=== PATIENT | male | born 1945 | race Caucasian/White ===

== ENCOUNTER 2018-04-07 11:28 | Emergency (ER) | payer MEDICARE ==
[~2018-04-07] VITALS: Ht 177.8 cm; Wt 97.0 kg
[~2018-04-07 11:28] MED LIST: ASPI-515 PO; CEFD300C37 PO; CIPR500T87 PO; DRON10CA PO; ENAL5TAB70 PO; Hydrocodone Bit/Acetaminophen PO; IBUP-1222 PO; LACT1CAP24 PO; LOSA25TA25 PO; METO25TA4 PO; METR500T PO; METR750T PO; OMEP-110 PO; OMEP20TA62 PO; POLY17PO5 PO; PROM25TA10 PO; ROSU10TA PO; TICA90TA PO
[2018-04-07] MEDS ORDERED: ONDANSETRON ODT 4 MG ONE (12:00)
[2018-04-07] MEDS ORDERED: MECLIZINE CHEWABLE 25 MG TAB ONE ×2 (12:27→13:30)
[2018-04-07] MEDS ORDERED: ONDANSETRON ODT 4 MG PO ONE (12:30)
[2018-04-07] MEDS ORDERED: MECLIZINE CHEWABLE 25 MG TAB PO ONE (12:30)
--- NOTE | 2018-04-07 12:30 | NUR ---
THIS IS A 72 YO MALE WHO PRESENTS TO THE ER C/O SUDDEN ONSET OF BLURRED VISION "I SAW WORMS ACROSS THE COMPUTER SCREEN" AND NAUSEA WITH A "WEIRD PRESSURE IN MY HEAD'. PT HAS EQUAL FORM COVERER BILATERALLY, ABLE TO DAMON W/O DIFFICULTY. DENIES LOSS OF SENSATION. FACE IS SYMMETRICAL. PT AO X 4. SKIN PWD. RESP EVEN AND EQAUL. PT REPORTS THAT BLURRED VISION IS DECREASED. PT ALSO REPORTS THAT VISION AND NAUSEA WORSENED WHEN MAXIM REEVES MOVED PT'S HEAD IN CERTAIN WAYS. AT BEDSIDE.
--- NOTE | 2018-04-07 12:31 | NUR ---
PT MEDICATED ORDERED FOR NAUSEA/DIZZINESS. PT TO MRI AT THIS TIME.
[2018-04-07 12:40] LABS: BASOPHILS # (AUTO) 0.02 x10^3/uL (0-0.1); BASOPHILS % (AUTO) 1 % (0-1); EOSINOPHILS # (AUTO) 0.11 x10^3/uL (0-0.4); EOSINOPHILS % (AUTO) 2 % (1-7); LYMPHOCYTES # (AUTO) 2.34 x10^3/uL (1-3.4); LYMPHOCYTES % (AUTO) 45 % (22-44); MD NO; MEAN CORPUSCULAR HEMOGLOBIN 30.6 pg (27.5-34.5); MEAN CORPUSCULAR HGB CONC 33.9 g/dL (33.2-36.2); MEAN CORPUSCULAR VOLUME 90.3 fL (81-97); MEAN PLATELET VOLUME 8.3 fL (7.4-10.4); MONOCYTES # (AUTO) 0.46 x10^3/uL (0.2-0.8); MONOCYTES % (AUTO) 9 % (2-9); NEUTROPHILS # (AUTO) 2.22 x10^3/uL (1.8-6.8); NEUTROPHILS % (AUTO) 43 % (42-75); PLATELET COUNT 271 x10^3/uL (130-400); RED BLOOD COUNT 4.84 x10^6/uL (4.38-5.82); RED CELL DISTRIBUTION WIDTH 13.8 % (9.4-14.8)
[2018-04-07 12:54] LABS: ALANINE AMINOTRANSFERASE 41 U/L (12-78); ALBUMIN 3.9 g/dL (3.4-5.0); ANION GAP 5 mmol/L (5-15); CALCIUM 8.1 mg/dL (8.5-10.1); CHLORIDE 108 mmol/L (98-107); CREATININE 0.79 mg/dL (0.7-1.3)
[2018-04-07 12:57] LABS: ALKALINE PHOSPHATASE 62 U/L (45-117); BILIRUBIN,TOTAL 0.3 mg/dL (0.2-1.0); TOTAL PROTEIN 7.3 g/dL (6.4-8.2); TROPONIN I < 0.015 ng/mL (0.000-0.045)
[2018-04-07] MEDS ORDERED: MECLIZINE CHEWABLE 25 MG TAB PO PRN (13:30)
--- NOTE | 2018-04-07 13:44 | NUR ---
PT REPORTS FEELING BETTER. PT REFUSES SECOND ANTIVERT AT THIS TIME STATING "I DON'T THINK I REALLY NEED IT. I DO FEEL BETTER". ERMD LALA NOW AT BEDSIDE FOR RECHECK/EXPLANATION OF RESULTS. AT BEDSIDE.
[2018-04-07 14:41] VITALS: BP 138/82
== END 2018-04-07 14:43 | disposition home or self-care (01) ==
LOC: ED 13:10
DX: R42 Dizziness and giddiness (principal); H53.8 Other visual disturbances; R11.0 Nausea; I10 Essential (primary) hypertension
CPT/HCPCS: 36415; 70551; 80053; 84484; 85025; 93005; 99284; Q0162

== ENCOUNTER 2020-01-25 21:03 | Inpatient (IN) | payer MEDICARE ==
[~2020-01-25] VITALS: Ht 177.8 cm; Wt 96.0 kg
[~2020-01-25 21:03] MED LIST changes: -ROSU10TA PO; +ROSU10TA2 PO
--- NOTE | 2020-01-25 21:16 | NUR ---
THIS IS A 74Y M THAT COMES IN TONIGHT FOR SUDDEN ONSET "KIDNEY PAIN RADIATING TO THE FRONT" PT DENIES HX OF UTI, KINDEY STONES AND HAS NEVER HAD ABD SX BEFORE. PT CONNECTED TO MONITORING VSS, AT BEDSIDE
--- NOTE | 2020-01-25 21:25 | NUR ---
UNABLE TO GET VENOUS ACCESS AT THIS TIME, ADDITIONAL RN TO BEDSIDE FOR ATTEMPT
--- NOTE | 2020-01-25 21:38 | NUR ---
STILL UNABLE TO OBTAIN ACCESS DR CONNOLLY AT BEDSIDE FOR US IV AT THIS TIME
[2020-01-25] MEDS ORDERED: ONDANSETRON 2MG/ML, 2ML ONE (21:42)
[2020-01-25] MEDS ORDERED: MORPHINE SULFATE 4 MG/ML, 1ML ONE (21:42)
[2020-01-25] MEDS ORDERED: MORPHINE SULFATE 4 MG/ML, 1ML IVPush PRN (22:00)
[2020-01-25] MEDS ORDERED: ONDANSETRON 2MG/ML, 2ML IVPush ONE (22:00)
[2020-01-25 22:08] LABS: BASOPHILS % (AUTO) 0 % (0-1); EOSINOPHILS % (AUTO) 1 % (1-7); LYMPHOCYTES % (AUTO) 22 % (22-44); MEAN CORPUSCULAR HGB CONC 32.8 g/dL (33.2-36.2); MEAN PLATELET VOLUME 8.8 fL (7.4-10.4); MONOCYTES % (AUTO) 6 % (2-9); NEUTROPHILS % (AUTO) 70 % (42-75); PLATELET COUNT 258 x10^3/uL (130-400); RED BLOOD COUNT 4.74 x10^6/uL (4.38-5.82); RED CELL DISTRIBUTION WIDTH 13.9 % (9.4-14.8)
[2020-01-25] MEDS ORDERED: HYDROmorphone 2 MG/ML, 1ML ONE (22:13)
--- NOTE | 2020-01-25 22:15 | NUR ---
PT MEDICATED WITH 2MG IM DILAUDID PER VERBAL ORDER FROM DR CONNOLLY FOR PAIN
[2020-01-25 22:34] LABS: MD NO
[2020-01-25 22:41] LABS: MICROSCOPIC NOT IND
[2020-01-25 22:46] LABS: ALANINE AMINOTRANSFERASE 34 U/L (12-78); ALBUMIN 3.9 g/dL (3.4-5.0); ANION GAP 9 mmol/L (5-15); CALCIUM 8.4 mg/dL (8.5-10.1); CHLORIDE 108 mmol/L (98-107)
[2020-01-25 22:49] LABS: ALKALINE PHOSPHATASE 69 U/L (45-117); BILIRUBIN,TOTAL 0.5 mg/dL (0.2-1.0); CREATININE 1.12 mg/dL (0.7-1.3); TOTAL PROTEIN 7.4 g/dL (6.4-8.2)
[2020-01-25] MEDS ORDERED: OMNIPAQUE 350 MG/ML, 100ML BOTTLE ONE (23:07)
[2020-01-26] MEDS ORDERED: CEFTRIAXONE PMX 1GM/50ML 50 ML IV ONE (00:30)
[2020-01-26] MEDS ORDERED: SODIUM CHLORIDE 0.9% 1,000 ML IV SCH (01:00)
[2020-01-26] MEDS ORDERED: morphine SULFATE 10 MG/ML, 1ML IVPush PRN (01:00)
[2020-01-26] MEDS ORDERED: ONDANSETRON 2MG/ML, 2ML IVPush PRN ×3 (01:00→09:00)
[2020-01-26] MEDS ORDERED: VIAGRA PO (01:16)
--- NOTE | 2020-01-26 01:18 | NUR ---
LAB CALLED FOR RAPID COVID SWABS
[2020-01-26] MEDS ORDERED: PIPERACILLIN/TAZO/PMX 3.375GM 50 ML ONE (01:19)
[2020-01-26] MEDS ORDERED: CEFTRIAXONE PMX 1GM/50ML 50 ML ONE (01:19)
--- NOTE | 2020-01-26 01:30 | NUR ---
PER DR CONNOLLY NO CULTURES PRIOR TO ABX AT THIS TIME, ABX INFUSING WITHOUT DIFFICULTY
[2020-01-26] MEDS: PIPERACILLIN/TAZO/PMX 3.375GM 50 ML IV SCH ×4 (01:35→19:47)
--- NOTE | 2020-01-26 01:44 | NUR ---
MATTHEW LIANG DONE AND WALKED TO LAB
--- NOTE | 2020-01-26 02:18 | NUR ---
REPORT TO YAMILETH CAGE PT READY FOR TRANSFER TO ROOM 461
[2020-01-26 03:00] VITALS: BP 167/83
[2020-01-26] MEDS ORDERED: HYDROmorphone 1 MG/ML, 1ML INJ IM ONE (03:00)
[2020-01-26] MEDS ORDERED: EZET10TA70 PO (03:25)
[2020-01-26 05:40] VITALS: BP 167/83
[2020-01-26] MEDS ORDERED: BUPIVACAINE/PF 0.25% ONE (06:09)
[2020-01-26] MEDS ORDERED: FENTANYL PF 250 MCG/5ML ONE (06:49)
[2020-01-26] MEDS ORDERED: LIDOCAINE-MPF 2% ,5ML ONE (06:50)
[2020-01-26] MEDS ORDERED: KETOROLAC 30 MG/1 ML ONE (07:24)
[2020-01-26] MEDS ORDERED: SUCCINYLCHOLINE 20 MG/ML, 10ML ONE (07:25)
[2020-01-26] MEDS ORDERED: ROCURONIUM 10MG/ML,5ML ONE (07:25)
[2020-01-26] MEDS ORDERED: PROPOFOL 10 MG/ML, 20ML ONE (07:25)
[2020-01-26] MEDS ORDERED: ONDANSETRON 2MG/ML, 2ML ONE (07:25)
[2020-01-26] MEDS ORDERED: DEXAMETHASONE 4 MG/ML, 1ML ONE (07:25)
[2020-01-26] MEDS ORDERED: SUGAMMADEX 200 MG/2 ML IVPush ONE (07:25)
[2020-01-26] MEDS ORDERED: BUPIVACAINE/PF 0.25% IM ONE (07:28)
[2020-01-26] MEDS ORDERED: PROMETHAZINE 25 MG/ML, 1ML IVPush PRN (07:30)
[2020-01-26] MEDS ORDERED: HYDROmorphone 1 MG/ML, 1ML INJ IVPush PRN (07:30)
[2020-01-26] MEDS ORDERED: FENTANYL PF 100 MCG/2ML IV PRN (07:30)
[2020-01-26] MEDS ORDERED: MEPERIDINE/PF 25MG/0.5ML IVPush PRN (07:30)
[2020-01-26] MEDS ORDERED: EPHEDRINE 50 MG/ML, 1ML IVPush PRN (07:30)
[2020-01-26] MEDS ORDERED: ACETAMINOPHEN 325 MG TABLET PO PRN (07:30)
[2020-01-26] MEDS ORDERED: LABETALOL 5MG/ML, 20ML IV PRN (07:30)
[2020-01-26] MEDS ORDERED: OXYcodone 5 MG/5 ML ORAL.SOL UDC PO PRN (07:30)
[2020-01-26] MEDS ORDERED: hydrALAzine 20 MG/ML, 1ML IV PRN (07:30)
[2020-01-26] MEDS ORDERED: MIDAZOLAM 1 MG/ML, 2ML ONE (07:46)
[2020-01-26] MEDS ORDERED: PROPOFOL 100 ML IV ONE (08:17)
[2020-01-26] MEDS ORDERED: PROPOFOL 100 ML IV PRN (08:30)
[2020-01-26 10:53] LABS: BASOPHILS % (AUTO) 0 % (0-1); EOSINOPHILS % (AUTO) 0 % (1-7); LYMPHOCYTES % (AUTO) 3 % (22-44); MEAN CORPUSCULAR HEMOGLOBIN 30.6 pg (27.5-34.5); MEAN CORPUSCULAR HGB CONC 33.3 g/dL (33.2-36.2); MEAN PLATELET VOLUME 8.7 fL (7.4-10.4); MONOCYTES % (AUTO) 4 % (2-9); NEUTROPHILS % (AUTO) 92 % (42-75); PLATELET COUNT 221 x10^3/uL (130-400); RED CELL DISTRIBUTION WIDTH 13.5 % (9.4-14.8)
[2020-01-26 10:55] LABS: MD NO
[2020-01-26 10:57] LABS: ANION GAP 7 mmol/L (5-15); CALCIUM 8.1 mg/dL (8.5-10.1); CHLORIDE 109 mmol/L (98-107); CREATININE 1.25 mg/dL (0.7-1.3)
[2020-01-26] MEDS ORDERED: FLU VACC QS2020-21(6MOS UP)/PF 60MCG/0.5 ML SYR IM ONE (11:30)
[2020-01-26] MEDS ORDERED: CALCIUM CARBONATE 500 MG TAB.CHEW PO PRN (12:30)
[2020-01-26] MEDS: OMEPRAZOLE 20 MG CAPSULE.DR PO SCH (12:35)
[2020-01-26 12:37] VITALS: BP 156/74
[2020-01-26] MEDS: HYDROcodone/APAP 5/325 TABLET PO PRN ×2 (18:32→23:52)
[2020-01-26 19:14] VITALS: BP 145/74
[2020-01-27 00:35] VITALS: BP 123/67
[2020-01-27] MEDS: PIPERACILLIN/TAZO/PMX 3.375GM 50 ML IV SCH ×2 (01:59→07:59)
[2020-01-27 03:53] VITALS: BP 150/72
[2020-01-27] MEDS: HYDROcodone/APAP 5/325 TABLET PO PRN ×2 (06:03→12:43)
[2020-01-27] MEDS: OMEPRAZOLE 20 MG CAPSULE.DR PO SCH (06:03)
[2020-01-27 07:53] VITALS: BP 157/73
[2020-01-27] MEDS ORDERED: LOSARTAN 25MG TABLET PO SCH (09:00)
[2020-01-27] MEDS ORDERED: DOCUSATE 100 MG CAPSULE PO SCH (09:30)
[2020-01-27] MEDS ORDERED: LEVO500T8 PO (11:43)
[2020-01-27 12:26] VITALS: BP 150/69
[2020-01-27] MEDS ORDERED: HYDR-3652 PO (13:28)
== END 2020-01-27 13:45 | disposition home or self-care (01) | DRG 342 ==
LOC: ED 22:06 → EDIP 01-26 00:40 → 4NE 01-26 02:44 → CCU 01-26 07:56 → 4NE 01-26 11:30 → DCLOUNGE 01-27 13:36
PROVIDERS: ADMIT Internal Medicine; ATTEND Internal Medicine
PROC: 0DTJ4ZZ Resection of Appendix, Percutaneous Endoscopic Approach (ICD-10-PCS; principal; 2020-01-26 07:30)
DX: K35.80 Unspecified acute appendicitis (principal); K56.7 Ileus, unspecified; E78.5 Hyperlipidemia, unspecified; I10 Essential (primary) hypertension; I25.10 Atherosclerotic heart disease of native coronary artery without angina pectoris; D72.829 Elevated white blood cell count, unspecified; I25.2 Old myocardial infarction; K21.9 Gastro-esophageal reflux disease without esophagitis; Z80.7 Family history of other malignant neoplasms of lymphoid, hematopoietic and related tissues; Z85.71 Personal history of Hodgkin lymphoma; Z95.5 Presence of coronary angioplasty implant and graft; Z79.82 Long term (current) use of aspirin; Z88.2 Allergy status to sulfonamides; K57.30 Diverticulosis of large intestine without perforation or abscess without bleeding
CPT/HCPCS: 36415; 71045; 71275; 74174; 80048; 80053; 81003; 83690; 85025; 87070; 87081; 87205; 87635; 88304; 94002; 94003; 99285; G0378; J0696; J1100; J1170; J1885; J2250; J2405; J2543; J2704; J3010; Q9967; C1894; J0330; J7030